=== PATIENT | female | born 1960 | race Caucasian/White ===

== ENCOUNTER 2024-07-20 13:19 | Outpatient (AMB) | payer OTHER, SELFPAY ==
[2024-07-20 13:20] VITALS: BP 100/64; PULSE 84; RESP 14; TEMP 37.1; O2SAT 98; BMI 15.9
--- NOTE | 2024-07-20 13:20 | MHC.PC.OV ---
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 Transferring care from [facility] in [place], [place]. Medical records have not been requested and have not been received. Authorization to Release Medical Information Form completed, in office, today. 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 Accompanied by: Self / Same As Patient Allergies penicillin V Allergy (Unknown, Verified 07/20/24 13:48) yeast infection Medication List - Last Reconciled 07/20/24 by RAZ Landon amlodipine 5 mg PO DAILY bupropion HCl (smoking deter) 150 mg PO BID gabapentin 900 mg PO BEDTIME PRN Tobacco use date assessed: 07/20/24 Dental Screening Dental Screen Date: 07/20/24 Did you have a dental visit in the last 12 months?: Yes Did you have a dental problem in the last 6 months where you did not have access to dental care?: No Was dental information given to patient?: Patient has dentist HPI INVAS TECH- BP med follow up HPI Details The patient is a 64-year-old female presenting for establishment of care following the demise of her previous primary care physician, [facility], [place], [place]. She reports a long-standing diagnosis of hypertension, noting a potentially related increase in blood pressure after receiving the Pfizer COVID-19 vaccine. A serious adverse reaction to Lisinopril led to facial trauma and hospitalization due to drastic blood pressure reduction (s/p fall). She currently manages her hypertension effectively with Amlodipine 5 mg Significant family history of colonic cancer necessitated a colonoscopic examination, revealing precancerous polyps in 2021, with follow-up scoped every two years. She experiences significant peripheral neuropathic pain, requiring gabapentin usage, and remains hesitant to further intervention for right ear deafness, considering past unpleasant surgical outcomes and family encouragement of modern approaches. The patient is significantly overdue for a mammogram and accepts necessary referrals for preventive gynecological consultations. Her skepticism regarding vaccinations persists, favoring selective immunization with noted past concerns about Rh-negative blood. [facility] Medical History (Updated 07/23/24 @ 00:20 by RAZ Landon) Family history of colon cancer HTN (hypertension) Hx of pneumothorax Surgical History Hx of section Family History Father Colon cancer Mother No problems noted. Son No problems noted. Son No problems noted. 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 Cognitive needs: No Hearing needs: No Vision needs: Yes (Glasses) Questionnaire Thrive Questionnaire Date Thrive assessed: 07/20/24 I am a: Patient What is your living situation today?: I have a steady place to live Within the past 12 months, did the food you bought not last and you didn't have the money to get more?: Never true Within the past 12 months, did you worry whether your food would run out before you got money to buy more?: Never true Do you have trouble paying for medicines?: No Do you have trouble getting transportation to medical appointments?: No Do you have trouble paying your heating and electricity bill?: No Do you have trouble taking care of your child, family member or friend?: No Do you have trouble with day-to-day activities such as bathing, preparing meals, shopping, managing finances, etc.?: No Are you currently unemployed and looking for a job?: No Are you interested in more education?: No Please select the resources that you would like help with: None Currently or been in a relationship where the following occur: No concerns reported THRIVE Score: 0 AUDIT C Alcohol Use Questionnaire (AUDIT-C) 1. How often do you have a drink containing alcohol?: 2-3 times a week 2. How many drinks containing alcohol do you have on a typical day when you are drinking?: 3 or 4 3. How often do you have six or more drinks on one occasion?: Never Total Score: 4 Score Reviewed/Action Taken: Yes Review of Systems Const Details: - Cardiovascular: Reports a history of hypertension. Denies chest pain, heart palpitations, or shortness of breath. - Respiratory: No cough or respiratory distress reported. - Gastrointestinal: Denies heartburn or abdominal pain. Regular bowel movements reported. - Neurologic: Reports chronic leg pain consistent with neuropathy. Denies other neurological symptoms such as seizures or tremors. - Musculoskeletal: Denies recent joint pain or significant musculoskeletal complaints. - Auditory: Deafness in the right ear, reports recent underwater feeling in left ear. - Allergy: Reports seasonal allergies, specifically to pollen. Denies headache(s) Eyes Denies loss of vision ENT Denies vertigo, Denies dizziness, Denies headache(s), Reports hearing loss (right ear and left ear sounds like she is under water) and Denies sore throat Card Denies chest pain, Denies leg edema and Denies lightheadedness Resp Denies cough, Denies hemoptysis and Denies wheezing GI Denies abdominal pain, Denies melena, Denies constipation, Denies diarrhea and Denies vomiting Denies urinary frequency, Denies dysuria and Denies urinary urgency Musc Reports arthralgias (reports having a nerve ball behind her knee), Denies joint swelling, Denies numbness, Denies tingling and Reports other (Positive nerve pain bilateral legs) Neuro Denies Abnormal speech present, Denies behavioral changes, Denies vertigo, Denies dizziness, Denies headache(s), Denies loss of vision, Denies memory loss, Denies numbness, Denies tingling and Reports other (bilateral lower extremity nerve pain) Psych Denies anxiety, Denies behavioral changes, Denies depression, Denies memory loss and Denies panic attacks Trung/Lymph Denies easy bleeding and Denies easy bruising Aller/Immun Denies wheezing Physical exam (Primary Care) Vital Signs: Last Vital Signs Temp 98.7 F 07/20/24 13:20 Pulse 84 07/20/24 13:20 Resp 14 07/20/24 13:20 BP 100/64 07/20/24 13:20 Pulse Ox 98 07/20/24 13:20 Oxygen Delivery Method Room Air 07/20/24 13:20 BMI result Body Mass Index 15.9 Tobacco/Smoking Status: Tobacco use Status Tobacco use date assessed 07/20/24 07/20/24 13:29 Patient Tobacco Use Status Current everyday Tobacco 07/20/24 13:46 Tobacco use type Cigarette 07/20/24 13:46 e-Cigarette/Vaping Use Never Used 07/20/24 13:46 Thrive Assessment: Date of Thrive Assessment Date Thrive assessed 07/20/24 07/20/24 13:29 Currently or been in a relationship where the following occur: No concerns reported Const General: healthy appearing, no acute distress, alert and awake Nutritional Appearance: well nourished Orientation/consciousness: oriented to person, oriented to place and oriented to time HENMT Ears: TM's normal bilaterally General nose exam: Normal nasal mucous membranes and turbinates present Eyes Conjunctivae: conjunctivae normal Sclerae: sclerae normal Pupils: Equal, round and reactive pupils present Neck Neck: Yes no lymphadenopathy and Yes no JVD Thyroid: Thyroid normal Carotids: no bruits Resp Effort & Inspection: normal respiratory effort and not tachypneic Auscultation: no crackles, no rales, no rhonchi and no wheezes Cardio Rate: regular rate Rhythm: regular rhythm Heart sounds: no murmurs and normal S1 and S2 GI Palpation (GI): Soft to palpation, nontender, no hepatomegaly and no splenomegaly Auscultation: normal bowel sounds General: Yes no CVA tenderness Back/Spine/Pelvis Back: no CVA tenderness Skin General skin exam: no rashes or lesions noted and dry skin Neuro General: oriented to person, oriented to place and oriented to time Cranial nerves: Yes Equal, round and reactive pupils present Speech: No Abnormal speech present Gait exam (Neuro): Normal gait present Motor exam (neuro): no tremor noted Extrem Right upper extremity: full ROM Left upper extremity: full ROM Right lower extremity: full ROM; no edema Left lower extremity: full ROM; no edema Psych Mental Status: mental status grossly normal Speech and movement: Normal speech and movement present Affect: normal affect Attitude: cooperative Thought process: Normal thought process present Coding Level of Care Code New Pt Level 4 (14417) Diagnoses Neuropathy G62.9 Hypertension, unspecified type I10 Hypertension type: unspecified Family history of colon cancer Z80.0 Sensorineural hearing loss (SNHL) of both ears H90.3 Hearing loss type: sensorineural Laterality: bilateral Time Spent (min) 41 Assessment & Plan Assessment & Plan (1) Neuropathy: Code(s): G62.9 - Polyneuropathy, unspecified Category: Medical (2) HTN (hypertension): Code(s): I10 - Essential (primary) hypertension Category: Medical Qualifiers: Hypertension type: unspecified Qualified Code(s): I10 - Essential (primary) hypertension (3) Family history of colon cancer: Code(s): Z80.0 - Family history of malignant neoplasm of digestive organs Category: Medical (4) Hearing loss: Code(s): H91.90 - Unspecified hearing loss, unspecified ear Category: Medical Qualifiers: Hearing loss type: sensorineural Laterality: bilateral Qualified Code(s): H90.3 - Sensorineural hearing loss, bilateral Plan The visit addressed the management of essential hypertension with existing effective medication, while reiterating the necessity of lifestyle and dietary changes to further support cardiovascular health. Surveillance for colonic health remains a priority, with planned colonoscopic evaluations every two years. Gabapentin will continue to address neuropathic pain efficiently, with further evaluation advised if intolerances increase. ENT consultation stands to offer potential preservation of hearing in the left ear despite historical unilateral hearing loss. 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 Follow-ups will focus on preventive measures, lifestyle adjustments, and monitoring therapeutic responses. Patient was informed and verbally consented to the use of an ambient scribe for clinic note documentation during this visit. Orders: Orders Complete Blood Count Auto Diff 07/20/24 I10 - Essential (primary) hypertension, Z00.00 - Encounter for general adult medical examination without abnormal findings Glucose Fasting 07/20/24 I10 - Essential (primary) hypertension, Z00.00 - Encounter for general adult medical examination without abnormal findings Lipid Panel 07/20/24 I10 - Essential (primary) hypertension, Z00.00 - Encounter for general adult medical examination without abnormal findings MM diagnostic mammo BI Today Z12.39 - Encounter for other screening for malignant neoplasm of breast Comprehensive [place]. Panel Fast 07/20/24 I10 - Essential (primary) hypertension, Z00.00 - Encounter for general adult medical examination without abnormal findings Vitamin D 25-OH Total 07/20/24 I10 - Essential (primary) hypertension, Z00.00 - Encounter for general adult medical examination without abnormal findings UA CC w/rflx Micro + Cult 07/20/24 I10 - Essential (primary) hypertension, Z00.00 - Encounter for general adult medical examination without abnormal findings TSH reflex Free T4 07/20/24 I10 - Essential (primary) hypertension, Z00.00 - Encounter for general adult medical examination without abnormal findings Referrals Gastroenterology Referral Z80.0 - Family history of malignant neoplasm of digestive organs AUTOMATIC SPLICING MACHINE OPERATOR Referral Z01.419 - Encounter for gynecological examination (general) (routine) without abnormal findings Ear/Nose/Throat Referral H90.3 - Sensorineural hearing loss, bilateral Medications: New amlodipine 5 mg PO DAILY 90 tabs 0RF I10 - Essential (primary) hypertension gabapentin 900 mg (3 x 300 mg) PO BEDTIME 30 days PRN 90 caps 2RF NEURALGIA Patient Instructions: - Follow through with the referral appointments for the ENT, AUTOMATIC SPLICING MACHINE OPERATOR, and colonoscopy as planned. - Continue taking antihypertensive and gabapentin medication as prescribed. - Schedule and attend routine eye examinations through insurance provisions to monitor eye health. - Monitor blood pressure regularly at home and report any significant changes. - Adjust dietary habits by reducing sodium and caffeine intake to improve blood pressure control. - Be vigilant in following up with upcoming lab work and ensure results are discussed at the next appointment. - Consult ENT about the status of hearing preservation on the left ear and explore available management options. - Contact healthcare professionals immediately if experiencing sudden changes in health status or medication opportunities.
--- OUTSIDE RECORDS SUMMARY | 2024-07-20 16:14 | XMS_ITS | Clinical Summary ---
Author Organization [facility] Facility Address [address] [place] [id number] Care Team Providers Care Oracle Manufacturing Consultant Name Role Phone Unavailable Primary Care Provider Unavailabl e Social History Tobacco Use Types Packs/Day Years Used Date Smoking Tobacco: Never Assessed Comments Unknown Sex and Gender Information Value Date Recorded Sex Assigned at Not on file Legal Sex Female 10:35 AM EDT Gender Identity Not on file Sexual Orientation Not on file Plan of Treatment Health Maintenance Due Date Last Done Comments Breast Cancer Screening 1961 Colorectal Cancer Screening: Annual FOBT 2010 Colorectal Cancer Screening: Colonoscopy 2010 Colorectal Cancer Screening: Sigmoidoscopy 2010 Pneumococcal Vaccine: 50+ Ye ars ( - PCV) 07/20/2011 Influenza Vaccine (Season Ended) 2024 Hepatitis B Vaccine Aged Out No longe r eligible based on patient's age to complete this topic [place]
== END 2024-07-20 14:28 | disposition home or self-care (01) ==
LOC: HO.HMCH 13:19
DX: G62.9 Polyneuropathy, unspecified (principal); I10 Essential (primary) hypertension; Z80.0 Family history of malignant neoplasm of digestive organs; H90.3 Sensorineural hearing loss, bilateral

== ENCOUNTER → 2024-07-20 13:19 | Outpatient (BNVA) | payer OTHER, SELFPAY | DX: Z13.89 Encounter for screening for other disorder (principal) ==

== ENCOUNTER 2024-10-21 11:36 | Outpatient (AMB) | payer OTHER, SELFPAY ==
[2024-10-21 11:42] VITALS: BP 100/62; PULSE 98; RESP 16; TEMP 37.1; O2SAT 96; BMI 16.4
--- NOTE | 2024-10-21 11:42 | MHC.PC.OV ---
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: No Accompanied by: Self / Same As Patient Allergies penicillin V Allergy (Unknown, Verified 10/21/24 11:51) yeast infection Medication List - Last Reconciled 10/21/24 by RAZ Landon amlodipine 5 mg PO DAILY gabapentin 900 mg (3 x 300 mg) PO BEDTIME PRN 30 days Tobacco use date assessed: 10/21/24 Dental Screening Dental Screen Date: 10/21/24 Did you have a dental visit in the last 12 months?: Yes Did you have a dental problem in the last 6 months where you did not have access to dental care?: No Was dental information given to patient?: Patient has dentist HPI annual exam HPI Details Patient is presenting for annual physical Dentist: up to date, she [facility] Eye:Not in a year, recommended making an appointment Snellen: Right: Left: Corrected vision: STI screening: Colonoscopy: Per medical record review, the patient had a colonoscopy on 06/21/2022, they were precancerous polyps found, and she had a recommendation to repeat this test in six-month. We will put in a referral urgently for a colonoscopy. Mammogram: Reports that they gave her called and told her that she needs a diagnostic ultrasound instead of mammogram. Because she reports pain in the left breast sometimes. Pap Smer: A referral was placed on her last visit PHQ-9: Flu: reports missing this year, but usually get this annually COVID: x2 Tdap: reports having one about 7 or 8 years ago Diet: regular Exercise:Reports that she run around all the day She did not get her labs done. Reports that she loss the paperwork for he labs. Explained to the patient that if she goes to [facility] facilities, she does not need any paperwork. She works at [employer], reports a toxic working environment Requested chantix to stop smoking to help her stop smoking constipation: reports that she always have constipation due to the polyps that they removed. Reports that her grandmother and father from colon cancer 2006-she had a breast augmentation after having her kids. Reports that her augmentation are below the muscles. [facility] Medical History Family history of colon cancer HTN (hypertension) Hx of pneumothorax Surgical History Hx of section Family History Father Colon cancer Mother No problems noted. Son No problems noted. Son No problems noted. 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 1. Little interest or pleasure in doing things: not at all 2. Feeling down, depressed, or hopeless: not at all 3. Trouble falling or staying asleep, or sleeping too much: not at all 4. Feeling tired or having little energy: not at all 5. Poor appetite or overeating: not at all 6. Feeling bad about yourself - or that you are a failure or have let yourself or your family down: not at all 7. Trouble concentrating on things, such as reading the newspaper or watching television: not at all 8. Moving or speaking so slowly that other people could have noticed. Or the opposite - being so fidgety or restless that you have been moving around a lot more than usual: not at all 9. Thoughts that you would be better off or of hurting yourself in some way: not at all Total score: 0 Source: Developed by Drs. Florian Hazel, Misa Ash, James Johnson and colleagues, with an educational aydee from [employer]. Thrive Questionnaire Date Thrive assessed: 07/20/24 I am a: Patient What is your living situation today?: I have a steady place to live Within the past 12 months, did the food you bought not last and you didn't have the money to get more?: I choose not to answer this question Within the past 12 months, did you worry whether your food would run out before you got money to buy more?: I choose not to answer this question Do you have trouble paying for medicines?: I choose not to answer this question Do you have trouble getting transportation to medical appointments?: I choose not to answer this question Do you have trouble paying your heating and electricity bill?: I choose not to answer this question Do you have trouble taking care of your child, family member or friend?: I choose not to answer this question Do you have trouble with day-to-day activities such as bathing, preparing meals, shopping, managing finances, etc.?: I choose not to answer this question Are you currently unemployed and looking for a job?: I choose not to answer this question Are you interested in more education?: I choose not to answer this question Please select the resources that you would like help with: None Currently or been in a relationship where the following occur: I choose not to answer THRIVE Score: 0 AUDIT C Alcohol Use Questionnaire (AUDIT-C) 1. How often do you have a drink containing alcohol?: Never Total Score: 0 KEYUR-7 AMB Questionnaire KEYUR-7 Feeling nervous, anxious, or on edge: 0 = Not at all Not being able to stop or control worryin = Not at all Worrying too much about different things: 0 = Not at all Trouble relaxin = Not at all Being so restless that it is hard to sit still: 0 = Not at all Becoming easily annoyed or irritable: 0 = Not at all Feeling afraid as if something awful might happen: 0 = Not at all Total KEYUR-7 score (0-4 normal; 5-9 mild; 10-14 moderate; 15-21 severe): 0 Source: Developed by Drs. Florian Hazel, Misa Ash, James Johnson and colleagues, with an educational aydee from [employer]. Review of Systems Const Denies headache(s) Eyes Denies loss of vision ENT Denies vertigo, Denies dizziness, Denies headache(s), Reports hearing loss (Right ear, left ear muffling sounds) and Denies sore throat Card Denies chest pain, Denies leg edema, Denies lightheadedness and Reports other (reports intermittent left breast mild pain/sensation for a brief time) Resp Denies cough, Denies hemoptysis and Denies wheezing GI Denies abdominal pain, Denies melena, Reports constipation, Denies diarrhea and Denies vomiting Denies urinary frequency, Denies dysuria and Denies urinary urgency Musc Denies arthralgias, Denies joint swelling, Denies numbness, Denies tingling and Reports other (Nerve pain to bilateral lower extremities) Neuro Denies Abnormal speech present, Denies behavioral changes, Denies vertigo, Denies dizziness, Denies headache(s), Denies loss of vision, Denies memory loss, Denies numbness and Denies tingling Psych Denies anxiety, Denies behavioral changes, Denies depression, Denies memory loss and Denies panic attacks Trung/Lymph Denies easy bleeding and Denies easy bruising Aller/Immun Denies wheezing Physical exam (Primary Care) Vital Signs: Last Vital Signs Temp 98.7 F 10/21/24 11:42 Pulse 98 10/21/24 11:42 Resp 16 10/21/24 11:42 BP 100/62 10/21/24 11:42 Pulse Ox 96 10/21/24 11:42 Oxygen Delivery Method Room Air 10/21/24 11:42 BMI result Body Mass Index 16.4 Tobacco/Smoking Status: Tobacco use Status Tobacco use date assessed 10/21/24 10/21/24 11:47 Patient Tobacco Use Status Former Tobacco user 10/21/24 11:47 Tobacco use type Cigarette 10/21/24 11:47 e-Cigarette/Vaping Use Never Used 10/21/24 11:47 PHQ-9: PHQ-9 Score PHQ-9: Total score 0 10/21/24 12:01 Thrive Assessment: Date of Thrive Assessment Date Thrive assessed 07/20/24 10/21/24 11:47 Currently or been in a relationship where the following occur: I choose not to answer Const General: healthy appearing, no acute distress, alert and awake Nutritional Appearance: well nourished Orientation/consciousness: oriented to person, oriented to place and oriented to time HENMT Ears: TM's normal bilaterally General nose exam: Normal nasal mucous membranes and turbinates present Eyes Conjunctivae: conjunctivae normal Sclerae: sclerae normal Pupils: Equal, round and reactive pupils present Neck Neck: Yes no lymphadenopathy and Yes no JVD Thyroid: Thyroid normal Carotids: no bruits Resp Effort & Inspection: normal respiratory effort and not tachypneic Auscultation: no crackles, no rales, no rhonchi and no wheezes Cardio Rate: regular rate Rhythm: regular rhythm Heart sounds: no murmurs and normal S1 and S2 GI Palpation (GI): Soft to palpation, nontender, no hepatomegaly and no splenomegaly Auscultation: normal bowel sounds General: Yes no CVA tenderness Back/Spine/Pelvis Back: no CVA tenderness Skin General skin exam: no rashes or lesions noted and dry skin Neuro General: oriented to person, oriented to place and oriented to time Cranial nerves: Yes Equal, round and reactive pupils present Speech: No Abnormal speech present Gait exam (Neuro): Normal gait present Motor exam (neuro): no tremor noted Deep tendon reflexes (DTR's): Right triceps reflex intensity grade: 2+, Left triceps reflex intensity grade: 2+, Rt Biceps (C5, C6): 2+, Left biceps reflex intensity grade: 2+, Right brachioradialis reflex intensity grade: 2+, Left brachioradialis reflex intensity grade: 2+, Right patellar reflex intensity grade: 2+ and Left patellar reflex intensity grade: 2+ Extrem Right upper extremity: full ROM Left upper extremity: full ROM Right lower extremity: full ROM; no edema Left lower extremity: full ROM; no edema Psych Mental Status: mental status grossly normal Speech and movement: Normal speech and movement present Affect: normal affect Attitude: cooperative Thought process: Normal thought process present Coding Level of Care Code Est Pt Prev Care 40-64y(98656) Diagnoses Annual physical exam Z00.00 Family history of colon cancer Z80.0 Neuropathy G62.9 Encounter for screening for malignant neoplasm of breast, unspecified screening modality Z12.39 Breast cancer screening modality: unspecified Hypertension, unspecified type I10 Hypertension type: unspecified Smoker F17.200 Sensorineural hearing loss (SNHL) of both ears H90.3 Hearing loss type: sensorineural Laterality: bilateral Time Spent (min) 39 Assessment & Plan Assessment & Plan (1) Annual physical exam: Code(s): Z00.00 - Encounter for general adult medical examination without abnormal findings Category: Medical Plan: Preventative guidelines reviewed with the patient. No recent labs to review. Patient has not completed ordered labs for this appointment. She will try to get this done as soon as possible. The patient is due for repeat colonoscopy due to precancerous polyps removal in 2022 and her father and paternal grandmother both a from colon cancer, that referral was placed at her previous appointment. Mammogram was ordered at her previous visit. The patient reports that she had a phone call from [facility], stating that she needs an ultrasound instead, since she gets intermittent left breast discomfort. We will confirm this information and update order. (2) Family history of colon cancer: Code(s): Z80.0 - Family history of malignant neoplasm of digestive organs Category: Medical Plan: GI referral placed for repeat colonoscopy at previous appointment (3) Neuropathy: Code(s): G62.9 - Polyneuropathy, unspecified Category: Medical Plan: Continue gabapentin 900 mg at bedtime p.r.n. (4) Breast cancer screening: Code(s): Z12.39 - Encounter for other screening for malignant neoplasm of breast Category: Medical Qualifiers: Breast cancer screening modality: unspecified Qualified Code(s): Z12.39 - Encounter for other screening for malignant neoplasm of breast Plan: Mammogram was ordered on her previous visit. There is a question, if the patient needs an ultrasound instead of a mammogram due to complaints of intermittent left breast discomfort. We will update order upon clarification (5) HTN (hypertension): Code(s): I10 - Essential (primary) hypertension Category: Medical Qualifiers: Hypertension type: unspecified Qualified Code(s): I10 - Essential (primary) hypertension Plan: Blood pressure 100/62. We will controlled Reinforced low-salt diet Continue amlodipine 5 mg daily (6) Smoker: Code(s): F17.200 - Nicotine dependence, unspecified, uncomplicated Category: Social Hx Plan: Encouraged smoking cessation Patient wants to try and quit Varenicline Dosepak ordered (7) Hearing loss: Code(s): H91.90 - Unspecified hearing loss, unspecified ear Category: Medical Qualifiers: Hearing loss type: sensorineural Laterality: bilateral Qualified Code(s): H90.3 - Sensorineural hearing loss, bilateral Plan: An ENT referral was placed at previous appointment Medications: New varenicline tartrate (Chantix Starting Month Box) PO PER PKG DIR 53 ea 0RF nicotine dependance
--- OUTSIDE RECORDS SUMMARY | 2024-10-21 12:27 | XMS_ITS | Clinical Summary ---
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
== END 2024-10-21 14:56 | disposition home or self-care (01) ==
LOC: HO.HMCH 11:36
DX: Z00.00 Encounter for general adult medical examination without abnormal findings (principal); Z80.0 Family history of malignant neoplasm of digestive organs; G62.9 Polyneuropathy, unspecified; Z12.39 Encounter for other screening for malignant neoplasm of breast; I10 Essential (primary) hypertension; F17.200 Nicotine dependence, unspecified, uncomplicated; H90.3 Sensorineural hearing loss, bilateral

== ENCOUNTER 2025-01-05 12:31 | Outpatient (REF) | payer OTHER, SELFPAY ==
--- NOTE | ~2025-01-05 | US_ITS ---
EXAMINATION: MM DIAGNOSTIC DIGITAL BREAST TOMOSYNTHESIS, BILATERAL Limited left breast ultrasound. CLINICAL INFORMATION: Left breast pain. Patient's last mammogram was 2019 for which left breast calcifications were recommended for follow-up. COMPARISON: Mammography: Comparison is made with relevant prior exams. TECHNIQUE: Digital breast mammography with tomosynthesis is performed in both the craniocaudal and mediolateral oblique views along with computer-aided detection (CAD). FINDINGS: There are scattered areas of fibroglandular density. Left: Grouped punctate calcifications in the retroareolar region upper inner breast middle and posterior depth are not significantly changed from prior magnification views dating back to 2019 and therefore benign. Eaton marker in the upper outer breast area of patient's pain without underlying abnormal finding. Targeted color Doppler ultrasound scanning in the area of the patient's left breast pain from 11 2 1:00 demonstrates normal fibroglandular breast tissue. There is no sonographic abnormal finding. Right: There are no significant masses, abnormal calcifications, or other abnormalities. Results are provided to the patient at time of visit by the technologist. US/US Breast LT Limited Mamm Only IMPRESSION: Left: 1. No mammographic or sonographic abnormal finding to account for the patient's left breast pain. Recommend clinical evaluation follow-up. 2. Grouped calcifications retroareolar region are stable dating back to 2019 on magnification views and therefore benign. Right: Negative. ASSESSMENT: BI-RADS Category 2: Benign RECOMMENDATION: 1 year F/U This patient's information was entered into a reminder system with a target due date for their next mammogram. Electronically signed by: Chapis Spence DO 01/05/2025 02:46 PM EDT
--- OUTSIDE RECORDS SUMMARY | 2025-01-05 13:52 | XMS_ITS | Clinical Summary ---
Author Organization [facility] Address [address] [place] [id number] Phone Care Team Providers Care Medical Social Consultant Name Role Phone Mihai Fofana Primary Care Provide r Self-Referred, Patient Unavailable Unavailab le Social History Tobacco Use Types Packs/Day Years Used Date Smoking Tobacco: Never Assessed Education Answer Date Recorded Are you interested in more education? Not on dru e 08/03/2022 Are you concerned about learning? Not on file 08/03/2022 No 08/03/2022 No 08/03/2022 Digital Access Answer Date Recorded No 09/01/2022 No 09/01/2022 No 09/01/2022 Reliable internet access at home? Not on file 09/01/2022 Device with a working camera? Not on file Comments Unknown Sex and Gender Information Value Date Recorded Sex Assigned at Not on file Legal Sex Female 9:38 AM EST Gender Identity Not on file Sexual Orientation Not on file Plan of Treatment Health Maintenance Due Date Last Done Comments Adult Td,Tdap Booster 1961 LIPID PANEL 1961 DEPRESSION SCREENING 1973 SMOKING Hx and SMOKELESS TOB ACCO SCREENING 1974 HEPATITIS C SCREENING 07/20/1979 HIV ONE-TIME SCREENING (18-6 5 YEARS) 07/20/1979 PAP SMEAR 1982 MAMMOGRAM 2001 COLOGUARD 2006 COLONOSCOPY 2006 COLORECTAL CANCER SCREENING 2006 FIT TEST 2006 FOBT 2006 SIGMOIDOSCOPY 2006 VIRTUAL COLONOSCOPY 2006 PNEUMOCOCCAL VACCINES (50+ y ears) (1 of 1 - PCV) 07/20/2011 ZOSTER VACCINES (1 of 2) 07/20/2011 INFLUENZA VACCINE (#1) 2024 COVID-19 VACCINE (1 - 2023-2 5 season) 2024 RSV VACCINE (1 - 1-dose 75+ series) 2036 HEPATITIS A VACCINES Aged Out No long er eligible based on patient's age to complete this topic HIB VACCINES Aged Out No longer eligi ble based on patient's age to complete this topic MENINGOCOCCAL VACCINES (ACWY) Aged Out No longer eligible based on patient's age to complete this topic MENINGOCOCCAL VACCINES (B) Aged Out N o longer eligible based on patient's age to complete this topic Medical Devices Not on file Insurance [facility] [employer] [facility] TOGETHER MCO TOGETHER [employer] [place] [address] [place] [address] [address] [address] [place] [address] TOGETHER [employer] [facility] [employer] Care Teams Medical Social Consultant Relationship Specialty Start Date End Date Mihai Fofana DO [address] [facility] [address] [place] [id number] PCP - General Internal Medicine 05/18/21 Self-Referred, Patient 05/18/21 Additional Source Comments The information contained in this document represents components of the legal health record. It is not the complete legal health record.[facility]
--- OUTSIDE RECORDS SUMMARY | 2025-01-05 13:52 | XMS_ITS | Clinical Summary ---
Author Organization [facility] Facility Address [address] [place] [id number] Care Team Providers Care Endorsement Clerk Name Role Phone Unavailable Primary Care Provider [...]
== END 2025-01-05 12:32 | disposition home or self-care (01) ==
LOC: HO.MAMMO 12:31
DX: N64.4 Mastodynia (principal)
CPT/HCPCS: 76642; 77062; 77066

== ENCOUNTER → 2025-01-05 13:00 | Outpatient (BNV) | payer OTHER, SELFPAY | PROVIDERS: Visit Provider Internal Medicine | DX: N64.4 Mastodynia (principal) | CPT/HCPCS: 76642; 77062; 77066 ==